=== PATIENT | male | born 1965 | race Caucasian/White ===

== ENCOUNTER 2021-12-06 06:20 | Day surgery (SDC) | payer MEDICAID, SELFPAY ==
[2021-12-06] VITALS (13 sets, daily range): BP systolic 129–154; BP diastolic 80–90; PULSE 56–64; RESP 14–16; TEMP 36.2–36.6; O2SAT 94–97; BMI 26.1
[2021-12-06] MEDS: ETHYL CHLORIDE 1 APPLICATION 1 APPLIC TOPICAL (07:23)
[2021-12-06] MEDS: SODIUM CHLORIDE 0.9 % (FLUSH) 10 ML SYRINGE IVF (07:23)
[2021-12-06] MEDS: LACTATED RINGERS 1000 ML 1,000 ML 100 ML IV (07:23)
--- NOTE | 2021-12-06 08:18 | W.ANESCHARGE ---
Anesthesia Charges Start Date/Time Anesthesia Start Date: 12/06/21 Anesthesia Start Time: 07:41 Stop Date/Time Anesthesia Stop Date: 12/06/21 Anesthesia Stop Time: 09:26 Summary Emergency: No
[2021-12-06] MEDS: BUPIVACAINE 0.25% 30 ML INJECTION (09:00)
--- NOTE | 2021-12-06 09:22 | PM.GSPRC ---
Operative Note Date of procedure: 12/06/21 Type of Procedure: Laparoscopic right inguinal hernia repair Procedure Description: After discussing the risks and benefits of the procedure, the patient signed informed consent.? The operative site was marked and the patient was brought to the operating room and placed on the operating table in supine position.? Care was taken to pad the patient's pressure points.?? The patient was then intubated by anesthesia.?? The operative site was then prepped and draped in the usual sterile fashion.? A time-out was then performed. A curvilinear incision was made below the umbilicus. Dissection was carried down to subcutaneous tissue until the anterior rectus fascia was encountered. This was incised off the midline on the right. The rectus muscle fibers were then retracted exposing the posterior fascia. A port with a dissecting balloon was then introduced into the pre-preperitoneal space. This was inflated under direct vision. The balloon was deflated, removed, and a 10 mm working port was placed. The space was insuflated and a 10 mm 30-degree scope was then advanced into the space. Two 5 mm ports were placed in the midline under direct vision. Dissection began on the right side. Apolinar's ligament and the pubic bone was exposed medially. It appeared as though there was possibly a broad-based but shallow fat-containing direct hernia. This was reduced. Following this, dissection was carried out laterally. An indirect defect was noted with a sizable cord lipoma. The cord lipoma and sac were dissected free from the cord structures using a combination of sharp and blunt dissection. A small tear in the sac was closed with a clip. A small branch of the epigastric vein was also clipped to prevent bleeding. Once the sac was completely reduced, a piece of Bard 3DMax mesh for the appropriate side was placed into the abdomen. This was positioned with the marker pointed medially. A Tacker was used to attach the mesh medially at Apolinar's ligament and 1 tack laterally with care to avoid the epigastric vessels and stay above the inguinal ligament. Because of the possible direct hernia, a tack was placed medial to the epigastric vessels as well. Once this was completed the sac was placed on top of the mesh and the preperitoneal space desufflated under direct vision. The ports were removed. The fascia from the infraumbilical port was closed with 0 Vicryl. The skin incisions were closed with absorbable subcuticular suture. Sterile dressings were then applied. The scrotum was examined to ensure that both testicles were down. Instrument sponge and needle counts were correct at the end of the case. ? The patient was then woken and transported to the recovery area in stable condition. ? The patient tolerated the procedure well. Findings: Indirect inguinal hernia with large cord lipoma as well as possible early direct inguinal hernia (broad-based and shallow) Anesthesia: GETA Surgeon: Ayse Delcid MD Estimated blood loss (mL): 5 Condition: stable Disposition: PACU
--- NOTE | 2021-12-06 10:49 | W.ANESCHARGE ---
Anesthesia Charges Start Date/Time Anesthesia Start Date: 12/06/21 Anesthesia Start Time: 07:41 Stop Date/Time Anesthesia Stop Date: 12/06/21 Anesthesia Stop Time: 09:26 Summary Emergency: No
== END 2021-12-06 11:22 | disposition home or self-care (01) ==
PROVIDERS: PCP Family Medicine; Visit Provider Surgery
PROC: (CPT 49650; principal; 2021-12-06 07:30)
DX: K40.90 Unilateral inguinal hernia, without obstruction or gangrene, not specified as recurrent (principal)
CPT/HCPCS: 49650; 00830; 00860; C1781; J0330; J1100; J1885; J2250; J2405; J2704; J3010; J3490; J7120